=== PATIENT | female | born 1985 | race Asian ===

== ENCOUNTER 2017-11-22 21:00 | Inpatient (IN) | payer SELFPAY ==
[~2017-11-22] VITALS: Ht 157.5 cm; Wt 60.0 kg
[2017-11-22] MEDS ORDERED: LR 1,000 ML IV ONE (22:55)
[2017-11-22] MEDS ORDERED: OXYTOCIN/NORMAL SALINE 1,000 ML IV SCH (22:55)
[2017-11-22] MEDS ORDERED: DINOPROSTONE 10 MG SUPP VG ONE (23:00)
[2017-11-22] MEDS ORDERED: NALBUPHINE HCL 10 MG/ML AMP IVP PRN (23:00)
[2017-11-22] MEDS ORDERED: TERBUTALINE SULFATE 1 MG/ML VIAL SUBCUT ONE (23:00)
[2017-11-22] MEDS: LR 1,000 ML IV SCH (23:15)
[2017-11-22 23:32] LABS: HEMATOCRIT 34.8 % (36-48); HEMOGLOBIN 11.8 g/dL (12.0-16.0); MEAN CORPUSCULAR HEMOGLOBIN 30 pg (27-31); MEAN CORPUSCULAR HGB CONC 34 % (32-36); MEAN CORPUSCULAR VOLUME 88 fL (79.0-98.0); PLATELET COUNT (AUTO) 180 K/uL (130-430); RED BLOOD CELL COUNT(AUTO) 3.96 MIL/uL (4.2-6.2); WHITE BLOOD COUNT (AUTO) 9.7 K/uL (4.8-10.8)
[2017-11-23 00:11] LABS: BAND % (MANUAL) 1 % (0-6); BASOPHILS % (MANUAL) 0 % (0-2); EOSINOPHILS % (MANUAL) 2 % (0-7); LYMPHOCYTES % (MANUAL) 23 % (20-46); MONOCYTES % (MANUAL) 3 % (0-11)
[2017-11-23 02:03] VITALS: BP_SYST 106
[2017-11-23] MEDS: LR 1,000 ML IV SCH (06:30)
[2017-11-23] MEDS ORDERED: fentaNYL CITRATE/PF 100 MCG/2 ML AMP ONE (08:42)
[2017-11-23] MEDS ORDERED: GENTAMICIN 120 mg/100 mL NS 100 ML IV ONE (13:45)
[2017-11-23] MEDS ORDERED: ACETAMINOPHEN 325 MG TABLET PO PRN ×2 (13:45→15:30)
[2017-11-23] MEDS ORDERED: AMPICILLIN SODIUM 2 GM in NS 100 ML IV SCH (13:45)
[2017-11-23] MEDS ORDERED: CEFAZOLIN 2 GM IVPB PREMIX 50 ML IV ONE ×2 (14:45→15:07)
[2017-11-23] MEDS ORDERED: OXYTOCIN/NORMAL SALINE 1,000 ML IV ONE ×2 (15:29→16:27)
[2017-11-23] MEDS ORDERED: LR 1,000 ML IV SCH (15:29)
[2017-11-23] MEDS ORDERED: MEASLES,MUMPS&RUBELLA VACC/PF 12500 UNIT/0.5 ML VIAL SUBQ PRN (15:30)
[2017-11-23] MEDS ORDERED: ANUSOL 1 EA SUPP.RECT (PREPARATION H) RC PRN (15:30)
[2017-11-23] MEDS ORDERED: RHO(D) IMMUNE GLOBULIN/MALTOSE 1500 UNITS/1.3 ML (WINHRO) IM PRN (15:30)
[2017-11-23] MEDS ORDERED: LANOLIN 7 GM OINT. TP PRN (15:30)
[2017-11-23] MEDS ORDERED: BISACODYL 10 MG/SUPPOSITORY RC PRN (15:30)
[2017-11-23] MEDS ORDERED: SIMETHICONE 80 MG TAB.CHEW PO PRN (15:30)
[2017-11-23] MEDS ORDERED: METHYLERGONOVINE MALEATE 0.2 MG/ML AMP ONE (15:41)
[2017-11-23] MEDS ORDERED: NALOXONE HCL 0.4 MG/ML AMP (NARCAN) IVP PRN (16:30)
[2017-11-23] MEDS ORDERED: ONDANSETRON HCL 4 MG/2 ML VIAL IVP PRN (16:30)
[2017-11-23] MEDS ORDERED: NALBUPHINE HCL 10 MG/ML AMP IVP PRN (16:30)
[2017-11-23] MEDS ORDERED: ONDANSETRON HCL 4 MG/2 ML VIAL IVP ONE (16:30)
[2017-11-23] MEDS ORDERED: HYDROmorphone 1 MG INJ. 1 MG/ML AMPUL IVP PRN (16:30)
[2017-11-23] MEDS ORDERED: DIPHENHYDRAMINE INJ 50 MG/ML VIAL IVP PRN (16:30)
[2017-11-23] MEDS ORDERED: MIDAZOLAM HCL 5 MG/5 ML VIAL IVP PRN (16:30)
[2017-11-23] MEDS ORDERED: MEPERIDINE HCL/PF 25 MG/ML DISP.SYRIN IVP PRN (16:30)
[2017-11-23] MEDS ORDERED: NALOXONE HCL 0.4 MG/ML AMP (NARCAN) IVP ONE (16:30)
[2017-11-23] MEDS ORDERED: fentaNYL CITRATE/PF 100 MCG/2 ML AMP IVP PRN (16:30)
[2017-11-23 16:34] VITALS: BP_SYST 118
[2017-11-23] MEDS ORDERED: KETOROLAC TROMETHAMINE 30 MG VIAL IM ONE (17:30)
[2017-11-23] MEDS ORDERED: KETOROLAC TROMETHAMINE 30 MG VIAL IVP ONE (17:30)
[2017-11-23] MEDS ORDERED: LR 500 ML IV ONE (18:26)
[2017-11-23] MEDS ORDERED: ROPIVACAINE 0.2% (NAROPIN) PF SOLUTION 100 ML BOTTLE EP ONE (19:30)
[2017-11-23] MEDS ORDERED: BUPIVACAINE /PF 0.5% 30 ML VIAL INJ ONE (19:30)
[2017-11-23] MEDS ORDERED: TEMAZEPAM 15 MG CAPSULE PO PRN (21:00)
[2017-11-24] MEDS: IBUPROFEN 600 MG TABLET PO SCH ×5 (02:49→23:05)
[2017-11-24] MEDS: SENNOSIDES/DOCUSATE SODIUM 1 TAB TABLET(SENOKOT-S) PO PRN ×2 (02:49→23:05)
[2017-11-24] MEDS: DOCUSATE SODIUM 100 MG CAPSULE PO PRN ×2 (02:50→23:04)
[2017-11-24 08:11] LABS: BASOPHILS # (AUTO) 0.1 K/uL (0.0-0.2); BASOPHILS % (AUTO) 0.5 % (0.0-2.0); EOSINOPHILS # (AUTO) 0.1 K/uL (0.0-0.4); EOSINOPHILS % (AUTO) 0.5 % (0.0-4.0); HEMATOCRIT 28.8 % (36-48); HEMOGLOBIN 9.8 g/dL (12.0-16.0); LYMPHOCYTES # (AUTO) 1.2 K/uL (1.0-5.5); MEAN CORPUSCULAR HEMOGLOBIN 30 pg (27-31); MEAN CORPUSCULAR HGB CONC 34 % (32-36); MEAN CORPUSCULAR VOLUME 90 fL (79.0-98.0); MONOCYTES # (AUTO) 0.4 K/uL (0.0-1.0); MONOCYTES % (AUTO) 3.2 % (1.7-9.3); NEUTROPHILS # (AUTO) 11.8 K/uL (1.8-7.7); NEUTROPHILS % (AUTO) 86.8 % (40.0-70.0); PLATELET COUNT (AUTO) 138 K/uL (130-430); RED BLOOD CELL COUNT(AUTO) 3.22 MIL/uL (4.2-6.2); RED CELL DISTRIBUTION WIDTH 14.3 % (9.0-15.0); WHITE BLOOD COUNT (AUTO) 13.6 K/uL (4.8-10.8)
[2017-11-24] MEDS ORDERED: FERROUS SULFATE 325 MG TABLET.DR PO ONE (09:30)
[2017-11-24] MEDS: HYDROcodone/ACETAMIN 5-325 MG TAB (NORCO/ VICODIN) PO PRN (15:24)
[2017-11-24] MEDS ORDERED: FERROUS SULFATE 325 MG TABLET.DR PO SCH (21:00)
[2017-11-24] MEDS: FERROUS SULFATE 325 MG TABLET.DR PO SCH (23:04)
[2017-11-25] MEDS: IBUPROFEN 600 MG TABLET PO SCH ×3 (06:33→17:51)
[2017-11-25] MEDS: HYDROcodone/ACETAMIN 5-325 MG TAB (NORCO/ VICODIN) PO PRN ×2 (07:57→22:31)
[2017-11-25] MEDS: FERROUS SULFATE 325 MG TABLET.DR PO SCH ×2 (07:59→21:15)
[2017-11-25] MEDS: DOCUSATE SODIUM 100 MG CAPSULE PO PRN (21:16)
[2017-11-26] MEDS: IBUPROFEN 600 MG TABLET PO SCH ×2 (06:05→11:30)
[2017-11-26] MEDS: FERROUS SULFATE 325 MG TABLET.DR PO SCH (10:37)
[2017-11-26] MEDS: HYDROcodone/ACETAMIN 5-325 MG TAB (NORCO/ VICODIN) PO PRN (10:38)
== END 2017-11-26 13:50 | disposition home or self-care (01) | DRG 766 ==
LOC: UNDOADMIN 21:00 → SPU 21:00
PROVIDERS: ADMIT Obstetrics & Gynecology; ATTEND Obstetrics & Gynecology
PROC: 10D00Z1 Extraction of Products of Conception, Low, Open Approach (ICD-10-PCS; principal; 2017-11-23 14:30)
DX: O76 Abnormality in fetal heart rate and rhythm complicating labor and delivery (principal); O42.92 Full-term premature rupture of membranes, unspecified as to length of time between rupture and onset of labor; Z37.0 Single live birth; Z3A.39 39 weeks gestation of pregnancy
CPT/HCPCS: 36415; 85007; 85025; 85027; 86592; 86886; 86900; 86901; 94760; J0290; J0690; J1200; J1580; J1885; J2210; J2300; J2590; J2795; J3010; J3490; J7120